=== PATIENT | male | born 1940 ===

== ENCOUNTER 2022-09-05 13:07 | Outpatient (CLI) | payer MEDICARE, BC | END 2022-09-05 13:08 | disposition home or self-care (01) | LOC: CSHWCC 13:07 | PROVIDERS: ATTEND Nurse Practitioner Family | DX: S41.002D Unspecified open wound of left shoulder, subsequent encounter (principal) ==

== ENCOUNTER 2022-09-12 08:29 | Outpatient (CLI) | payer MEDICARE, BC | END 2022-09-12 08:30 | disposition home or self-care (01) | LOC: CSHWCC 08:29 | PROVIDERS: ATTEND Nurse Practitioner Family | DX: S41.002D Unspecified open wound of left shoulder, subsequent encounter (principal) | CPT/HCPCS: 99212; G0463 ==